=== PATIENT | male | born 1975 | race Caucasian/White ===

== ENCOUNTER 2020-11-09 11:58 | Emergency (ER) | payer MEDICAID, SELFPAY ==
--- NOTE | ~2020-11-09 | XR_ITS ---
EXAMINATION: XR KNEE, RIGHT CLINICAL INFORMATION: Swelling and redness. Evaluate for effusion. COMPARISON: None TECHNIQUE: Four views of the right knee. FINDINGS: There is anterior prepatellar soft tissue swelling. No joint effusion is evident. No bony abnormality is demonstrated. Joint spaces are maintained. XR/XR knee RT 3V IMPRESSION: Prepatellar soft tissue swelling. No joint effusion demonstrated.
[2020-11-09 12:41] VITALS: BP 119/77; PULSE 77; RESP 16; TEMP 36.6; O2SAT 98; BMI 28.0
--- NOTE | 2020-11-09 13:43 | ED.LOWEXIN ---
HPI - Extremity Injury (Lower) General Chief Complaint: Extremity Injury, Lower Stated Complaint: leg pain Time Seen by Provider: 11/09/20 13:36 Source: patient Mode of arrival: ambulatory Limitations: no limitations History of Present Illness HPI Narrative: 45-year-old male previously healthy here with right knee pain and swelling. The patient tells me that he had a small abrasion over his knee and he has been itching this causing the area open up. He then tells me that he started to notice redness and a little bit of swelling around the site for the last 3-4 days. No fevers or chills. No pain with weight-bearing or with bending or extending the knee. h/o laceration to right knee from young as a child requiring OR debridement, NO hardware. Related Data Previous Rx's Medication Instructions Recorded cephalexin 500 mg PO TID #21 cap 11/09/20 sulfamethoxazole-trimethoprim 1 tab PO BID #14 tab 11/09/20 [Bactrim DS] Allergies Allergy/AdvReac Type Severity Reaction Status Date / Time No Known Allergies Allergy Verified 11/09/20 12:48 Review of Systems Review of Systems: Yes all other systems are reviewed and are negative Constitutional: Constitutional: Reports no additional constitutional complaints, Denies body ache(s), Denies chills, Denies fever(s), Denies headache(s) and Denies weakness Eyes: Eyes: Reports no additional eye complaints and Denies change in vision ENT: Reports system reviewed and no additional complaints, except as documented, Denies dizziness, Denies headache(s), Denies nasal congestion, Denies nasal discharge and Denies neck pain Cardiovascular: Cardiovascular: Reports no additional cardiovascular complaints, Denies chest pain, Denies leg edema and Denies dyspnea Respiratory: Respiratory: Reports no additional respiratory complaints, Denies cough and Denies dyspnea Gastrointestinal: Gastrointestinal: Reports no additional gastrointestinal complaints, Denies abdominal pain, Denies diarrhea, Denies nausea and Denies vomiting Genitourinary: Genitourinary: Denies urinary incontinence Musculoskeletal: Musculoskeletal: Reports no additional musculoskeletal complaints, Denies back pain, Reports arthralgias, Denies joint swelling, Denies neck pain, Denies numbness and Denies tingling Integumentary/Breasts: Skin/Breast: Reports system reviewed and no additional complaints, except as docu, Reports swelling, Reports erythema and Reports rash Neurologic: Reports system reviewed and no additional complaints, except as documented, Denies Abnormal speech present, Denies dizziness, Denies headache(s), Denies numbness, Denies tingling and Denies weakness PMFSH Past Medical History Attestation statement: The following information was validated with the patient. Source: old records reviewed and nursing notes reviewed Medical History (Updated 11/09/20 @ 14:27 by Jong Keenan NP) No known health problems Social History Social History Smoked in Last 30 Days: No Use of substances other than those prescribed or required for medical reasons: No Advance Directives: No Advance Directives Information Provided: Yes Physical Exam Vital Signs: Vital Signs: Last Vital Signs Temp 97.9 F 11/09/20 12:41 Pulse 77 11/09/20 12:41 Resp 16 11/09/20 12:41 BP 119/77 11/09/20 12:41 Pulse Ox 98 11/09/20 12:41 Body Mass Index 28.0 Const: General: cooperative, healthy appearing, comfortable and no acute distress Orientation/consciousness: patient oriented x3 Limitations: no limitations HENMT: Head: Yes normal to inspection Ears: hearing grossly normal bilaterally General nose exam: Normal external nose present Face and sinus: Yes normal facial exam Mouth: Normal oral and palatal mucosa present Throat: Yes posterior oropharynx normal Eyes: General: appearance normal, both eyes and all related structures Pupils: Equal, round and reactive pupils present Neck: Neck: Yes normal visual inspection Chest: Chest palpation & inspection: normal inspection of the chest Resp: Effort & Inspection: normal respiratory effort Auscultation: clear to auscultation bilaterally Cardio: Rate: regular rate Rhythm: regular rhythm Peripheral pulses: Peripheral pulses 2+ throughout GI: Inspection: Yes normal to inspection Palpation (GI): Soft to palpation and nontender Auscultation: normal bowel sounds Back/Spine/Pelvis: Thoracic/Lumbar Spine: thoracic and lumbar spine normal to inspection Skin: General skin exam: no rashes or lesions noted Neuro: General: patient oriented x3, no focal motor deficits and normal sensation to monofilament Cranial nerves: Yes Equal, round and reactive pupils present Cognition (Neuro): normal cognition Speech: No Abnormal speech present Gait exam (Neuro): Normal gait present Motor exam (neuro): 5/5 motor strength present throughout Extrem: Other: To the anterior right knee there is an area of erythema which extends laterally approximately 2-3 inches distally. It is not circumferential. Mild swelling with no effusion. Patient is able to extend and flex the knee with no difficulty or reports of pain. Healed abrasion noted to the anterior right knee. General: Yes normal to inspection Course Course Course Narrative: 45 yo male here with right knee pain, swelling and erythema. No difficulty with range of motion. No fevers or chills. X-ray shows some soft tissue swelling with no joint effusion. Less likely septic knee with full range of motion with no pain reported. Patient also well-appearing with no signs or symptoms of systemic infection. Likely cellulitis secondary to abrasion. Will start patient on oral antibiotics and have him follow-up with Orthopedics. Manoj wrap and crutches to limit weight-bearing. Reviewed worrisome signs and symptoms such as pain with range of motion, worsening redness, fever greater than 100.4 on when to return to the emergency department. Comfortable discharge home. MDM - Extremity Injury (Lower) Medical Records Attestation: I reviewed the patient's medical records. Lab Data Attestation: I reviewed the patient's lab results. Imaging Data knee xray: Attestation: I personally reviewed and interpreted this imaging study as follows: Radiologist's impression: [address] [id number] ReportSigned Patient: Carlene Myles#: [id number]: 1975Acct:[id number]/Sex: 45 / MADM Date: 11/09/20Loc: HO.EDAttending Dr: Ordering Physician: JONG KEENAN NP Date of Service: 11/09/20 Procedure(s): XR knee RT 3V Accession Number(s): [id number] cc: JONG KEENAN NP~ EXAMINATION: XR KNEE, RIGHT CLINICAL INFORMATION: Swelling and redness. Evaluate for effusion. COMPARISON: None TECHNIQUE: Four views of the right knee. FINDINGS: There is anterior prepatellar soft tissue swelling. No joint effusion is evident. No bony abnormality is demonstrated. Joint spaces are maintained. XR/XR knee RT 3V IMPRESSION: Prepatellar soft tissue swelling. No joint effusion demonstrated. Discharge Plan Discharge Clinical Impression: Cellulitis Qualifiers: Site of cellulitis: extremity Site of cellulitis of extremity: lower extremity Laterality: right Qualified Code(s): L03.115 - Cellulitis of right lower limb Patient Disposition: Home, Self-Care Instructions: Cellulitis (ED) Additional Instructions: Manoj wrap for comfort Ice, elevation Return for difficulty bending or flexing the knee due to pain call orthopedics for a follow-up. Prescriptions: New cephalexin 500 mg capsule 500 mg PO TID Qty: 21 RF: 0 sulfamethoxazole-trimethoprim [Bactrim DS] 800-160 mg tablet 1 tab PO BID Qty: 14 RF: 0 Referrals: Karl Keating MD [Primary Care Provider] - 2 days Carlos Mims MD [Physician] - 2 days Interventions: ED Discharge Assessment Last Done: 11/09/20 14:44 Discharge Date/Time: 11/09/20 14:45
== END 2020-11-09 14:45 | disposition home or self-care (01) ==
PROVIDERS: Emergency Provider Emergency Medicine Emergency Medical Services; PCP Internal Medicine
DX: S80.211A Abrasion, right knee, initial encounter (principal); L03.115 Cellulitis of right lower limb; X58.XXXA Exposure to other specified factors, initial encounter; Y93.9 Activity, unspecified; Y92.9 Unspecified place or not applicable; Y99.9 Unspecified external cause status
CPT/HCPCS: 73562; 99283

== ENCOUNTER 2021-05-05 11:16 | Emergency (ER) | payer MEDICAID, SELFPAY ==
--- NOTE | ~2021-05-05 | XR_ITS ---
EXAMINATION: XR KNEE, RIGHT CLINICAL INFORMATION: Right knee pain COMPARISON: Radiographs right knee 11/09/2020 TECHNIQUE: Four views of the right knee. FINDINGS: The lateral view shows soft tissue swelling just anterior superior to the anterior tibial tubercle. There is no gas tracking in the soft tissues. No patella baja or scott. No suprapatellar effusion. The bony structures are normal in density. There is no fracture or dislocation. No joint narrowing. No erosive change or chondrocalcinosis. XR/XR knee RT 4V IMPRESSION: Superficial soft tissue swelling overlying region of distal patellar tendon. Otherwise unremarkable exam.
[2021-05-05 11:58] VITALS: BP 133/68; PULSE 68; RESP 18; TEMP 36.4; O2SAT 97; BMI 28.9
--- NOTE | 2021-05-05 11:59 | ED.LOWEXIN ---
HPI - Extremity Injury (Lower) General Chief Complaint: General Medical Stated Complaint: right leg pain Time Seen by Provider: 05/05/21 11:57 Source: patient Mode of arrival: ambulatory Limitations: no limitations History of Present Illness HPI Narrative: Right knee small area of erythema that is painful. patient denies any recent trauma. Patient denies any leg swelling, calf pain, Knee stiffness, fever, or chills. Related Data Previous Rx's Medication Instructions Recorded cephalexin 500 mg capsule 500 mg PO TID #21 cap 11/09/20 sulfamethoxazole 800 1 tab PO BID #14 tab 11/09/20 mg-trimethoprim 160 mg tablet (Bactrim DS) cephalexin 500 mg capsule 500 mg PO QID 7 Days #28 cap 05/05/21 doxycycline hyclate 100 mg capsule 100 mg PO BID 7 Days #14 cap 05/05/21 Allergies Allergy/AdvReac Type Severity Reaction Status Date / Time No Known Allergies Allergy Verified 11/09/20 12:48 Review of Systems Review of Systems: Yes all other systems are reviewed and are negative Constitutional: Constitutional: Reports as per HPI and Reports no additional constitutional complaints Eyes: Eyes: Reports as per HPI and Reports no additional eye complaints ENT: Reports system reviewed and no additional complaints, except as documented and Reports as per HPI Cardiovascular: Cardiovascular: Reports as per HPI and Reports no additional cardiovascular complaints Respiratory: Respiratory: Reports as per HPI and Reports no additional respiratory complaints Gastrointestinal: Gastrointestinal: Reports as per HPI and Reports no additional gastrointestinal complaints Genitourinary: Genitourinary: Reports no additional male genitourinary complaints and Reports as per HPI Musculoskeletal: Musculoskeletal: Reports no additional musculoskeletal complaints, Reports as per HPI and Reports arthralgias (left knee pain) Neurologic: Reports system reviewed and no additional complaints, except as documented Psychiatric: Psychiatric: Reports no additional psychiatric complaints and Reports as per HPI [facility] Past Medical History Surgical History (Updated 05/05/21 @ 12:00 by Abeba Grant RN) Hx of appendectomy Family History Family History Father Diabetes High blood pressure Mother Arthritis Social History Social History Alcohol intake: never Advance Directives: No Advance Directives Information Provided: No Physical Exam Vital Signs: Vital Signs: Last Vital Signs Temp 97.5 F 05/05/21 11:58 Pulse 68 05/05/21 11:58 Resp 18 05/05/21 11:58 BP 133/68 05/05/21 11:58 Pulse Ox 97 05/05/21 11:58 Body Mass Index 28.9 Const: General: cooperative, healthy appearing, comfortable and no acute distress Orientation/consciousness: oriented to time and patient oriented x3 HENMT: Head: Yes normal to inspection, Yes No palpable skull fracture present, Yes normocephalic and Yes atraumatic Eyes: General: appearance normal, both eyes and all related structures Neck: Neck: Yes normal visual inspection, Yes full ROM, Yes no lymphadenopathy, Yes no meningeal signs, Yes trachea midline, Yes supple, No anterior neck swelling and No tender Chest: Chest palpation & inspection: normal inspection of the chest and normal palpation of entire chest wall Resp: Effort & Inspection: normal respiratory effort and able to speak in complete sentences Auscultation: clear to auscultation bilaterally Cardio: Jugular venous distension: no JVD Heart sounds: S1 normal heart sound present and S2 normal heart sound present GI: Inspection: Yes normal to inspection and No abdominal wall ecchymosis Palpation (GI): Soft to palpation, not firm, nontender and no guarding : General: No CVA tenderness and Yes no CVA tenderness Back/Spine/Pelvis: Back: no CVA tenderness and No CVA tenderness Skin: General skin exam: erythema Full body images: 1. small area of knee with erythema and tenderness. Neuro: General: oriented to time, patient oriented x3, no meningeal signs and CN's II-XI intact bilaterally Cranial nerves: Yes CN's II-XII intact bilaterally Extrem: General: Yes normal to inspection Knee images: 1. Erythema with mild tenderness. negative for knee stiffness. Knee is not swollen. Patient has complete range of motion of knee. lower extremities negative for swelling, calf pain, ecchyomsis, or deformities. motor, neuro, and vascular exam is intact. Course Course Course Narrative: Presents to the ED for right knee pain since yesterday without any trauma. patient denies any swelling of knee. Patient states slight redness on knee. patient denies any knee stiffness or inabitliy to move. patient sent for xray of knee. Vital signs stable Reevaluation(s) Reevaluation #1: mild Cellulitis. not concerned for sepsis. Knee xray negative for joint fluid or fracture. not concerned for septic joint. MDM - Extremity Injury (Lower) MDM Narrative Medical decision making narrative: Cellulitis Discharge Plan Discharge Clinical Impression: Cellulitis Qualifiers: Site of cellulitis: extremity Site of cellulitis of extremity: lower extremity Laterality: right Qualified Code(s): L03.115 - Cellulitis of right lower limb Patient Disposition: Home, Self-Care Instructions: Cellulitis (ED), Warm Compress or Soak (ED) Additional Instructions: Return to the ED for swelling of knee, severe redness, knee stiffness, inability to bend knee or walk, red streaks on legs, chest pain, shorntess of breath, fever, or chills. Please follow up with PCP. Prescriptions: New cephalexin 500 mg capsule 500 mg PO QID 7 Days Qty: 28 RF: 0 doxycycline hyclate 100 mg capsule 100 mg PO BID 7 Days Qty: 14 RF: 0 No Action cephalexin 500 mg capsule 500 mg PO TID Qty: 21 RF: 0 sulfamethoxazole-trimethoprim [Bactrim DS] 800-160 mg tablet 1 tab PO BID Qty: 14 RF: 0 Interventions: ED Discharge Assessment Last Done: 05/05/21 12:44 Discharge Date/Time: 05/05/21 12:45 Print Language: Citizen Of [place]
== END 2021-05-05 12:45 | disposition home or self-care (01) ==
PROVIDERS: Emergency Provider Emergency Medicine; PCP Internal Medicine
DX: L03.115 Cellulitis of right lower limb (principal); M79.604 Pain in right leg; Z79.899 Other long term (current) drug therapy
CPT/HCPCS: 73564; 99283

== ENCOUNTER 2021-07-01 08:46 | Outpatient (REF) | payer MEDICAID, SELFPAY ==
[2021-07-01 09:38] LABS: COVID-19 Test Negative (Negative)
== END 2021-07-01 08:47 | disposition home or self-care (01) ==
LOC: HO.LAB 08:46
PROVIDERS: Visit Provider Internal Medicine
DX: Z20.822 Contact with and (suspected) exposure to COVID-19 (principal)
CPT/HCPCS: 36415; 87635; C9803

== ENCOUNTER 2022-02-05 10:07 | Emergency (ER) | payer MEDICAID, SELFPAY ==
[2022-02-05 11:32] VITALS: BP 118/70; PULSE 60; RESP 16; TEMP 36.8; O2SAT 100; BMI 28.8
[2022-02-05 11:52] LABS: COVID-19 Test Positive (Negative); IDNOW Serial# 55D5AD1C
[2022-02-05 12:12] LABS: Influenza A Negative (Negative); Influenza B2 Negative (Negative)
[2022-02-05 12:25] VITALS: BP 129/76; PULSE 71; RESP 18; TEMP 36.6; O2SAT 100
--- NOTE | 2022-02-05 12:42 | ED_ITS ---
HPI - General Adult General Chief complaint: Upper Respiratory Symptoms Stated complaint: sorethroat, flu like Source: patient Mode of arrival: ambulatory History of Present Illness HPI narrative: 46-year-old male healthy presents to ED for sore throat, body aches, fever, night sweats, and chills. Patient states her family members are also sick. Patient vaccinated with Pfizer and the Booster. Related Data Previous Rx's Medication Instructions Recorded cephalexin 500 mg capsule 500 mg PO TID #21 cap 11/09/20 sulfamethoxazole 800 1 tab PO BID #14 tab 11/09/20 mg-trimethoprim 160 mg tablet (Bactrim DS) cephalexin 500 mg capsule 500 mg PO QID 7 Days #28 cap 05/05/21 doxycycline hyclate 100 mg capsule 100 mg PO BID 7 Days #14 cap 05/05/21 Allergies Allergy/AdvReac Type Severity Reaction Status Date / Time No Known Allergies Allergy Verified 11/09/20 12:48 Review of Systems Review of Systems: Sore throat, body aches, night chills, night sweats, fever Yes all other systems are reviewed and are negative [facility] Past Medical History Surgical History (Updated 05/05/21 @ 12:00 by Abeba Grant RN) Hx of appendectomy Family History Family History Father Diabetes High blood pressure Mother Arthritis Social History Social History Alcohol intake: never Advance Directives: No Advance Directives Information Provided: No Physical Exam ED Vital Signs: Vital Signs - 24 hr 02/05/22 11:32 02/05/22 12:25 Temperature 98.3 F 98 F Pulse Rate 60 71 Respiratory Rate 16 18 Blood Pressure 118/70 129/76 Pulse Oximetry 100 100 BMI result Body Mass Index 28.8 Const General: cooperative, healthy appearing, comfortable, no acute distress, well developed, alert, awake and Physically active Orientation/consciousness: patient oriented x3 HENMT Head: Yes normal to inspection, Yes No palpable skull fracture present, Yes normocephalic, Yes atraumatic and No abrasion Eyes General: appearance normal, both eyes and all related structures Neck Neck: Yes normal visual inspection, Yes full ROM, Yes no lymphadenopathy, Yes no meningeal signs, Yes trachea midline, Yes supple, No anterior neck swelling and No tender Chest Chest palpation & inspection: normal inspection of the chest and normal palpation of entire chest wall Resp Effort & Inspection: normal respiratory effort and able to speak in complete sentences Auscultation: clear to auscultation bilaterally Cardio Jugular venous distension: no JVD Heart sounds: S1 normal heart sound present and S2 normal heart sound present GI Inspection: Yes normal to inspection and No abdominal wall ecchymosis Palpation (GI): Soft to palpation, not firm, nontender, no guarding and not rigid General: No CVA tenderness and Yes no CVA tenderness Back/Spine/Pelvis Back: no CVA tenderness, No CVA tenderness and No back tenderness Skin General skin exam: no rashes or lesions noted and elasticity normal Neuro General: patient oriented x3, gait normal, no meningeal signs and CN's II-XI intact bilaterally Cranial nerves: Yes CN's II-XII intact bilaterally Extrem General: Yes normal to inspection and Yes full ROM Psych Appearance: grossly normal, well kempt and not disheveled Course Course Course Narrative: COVID, influenza ordered. Reevaluation(s) Reevaluation #1: Patient COVID positive. Patient well-appearing. Not suspecting COVID pneumonia myocarditis, heart attack, or pulmonary embolus. Patient educated on signs of respiratory distress told to come back to ED if he has them. Time: 12:51 Medical Decision Making [facility] Narrative Medical decision making narrative: COVID Lab Data Labs: Lab Results 02/05/22 02/05/22 Range/Units 11:37 11:37 COVID-19 (SHAHZAD) Positive A (Negative) COVID-19 Clin Com See Note Influenza Type A (JO) Negative (Negative) Influenza Type B (JO) Negative (Negative) Influenza A & B Note See Note Discharge Plan Discharge Clinical Impression: COVID-19 Patient Disposition: Home, Self-Care Instructions: COVID-19 (Coronavirus Disease 2019) (ED) Additional Instructions: You came back positive for COVID-19. You will be given 7 days off a self- isolation. Return to the ED immediately for any chest pain, shortness of breath, coughing up blood, leg swelling, calf pain, O2 saturation below 93%, or any other concerning symptoms. Please follow-up with primary care provider Prescriptions: No Action cephalexin 500 mg capsule 500 mg PO TID Qty: 21 0RF sulfamethoxazole-trimethoprim [Bactrim DS] 800-160 mg tablet 1 tab PO BID Qty: 14 0RF cephalexin 500 mg capsule 500 mg PO QID 7 Days Qty: 28 0RF doxycycline hyclate 100 mg capsule 100 mg PO BID 7 Days Qty: 14 0RF Stand Alone Forms: Work/School Release Interventions: ED Discharge Assessment Last Done: 02/05/22 13:08 Discharge Date/Time: 02/05/22 13:09 Print Language: Swedish
== END 2022-02-05 13:09 | disposition home or self-care (01) ==
LOC: HO.ED 13:01
PROVIDERS: Emergency Provider Emergency Medicine
DX: U07.1 COVID-19 (principal)
CPT/HCPCS: 87502; 87635; 99281; 99283

== ENCOUNTER 2022-03-20 15:00 | Emergency (ER) | payer MEDICAID, SELFPAY ==
[2022-03-20 15:01] VITALS: BP 136/81; PULSE 18; RESP 17; TEMP 36.6; O2SAT 98; BMI 30.2
[2022-03-20 15:21] LABS: MANUAL DIFF FLAG NO
[2022-03-20 15:23] LABS: Basophils Percent Auto 0.3 % (0-2); Eosinophils Absolute Auto 0.2 X10*3/uL (0.0-0.4); Eosinophils Percent Auto 3.8 % (0-4); Hematocrit 37.7 % (42.0-52.0); Imm Gran Abs Auto 0.01 X10*3/uL (0.00-0.03); Imm Gran Pct Auto 0.2 % (0.0-0.4); Lymphocytes Absolute Auto 2.1 X10*3/uL (1.2-4.9); Lymphocytes Percent Auto 36.7 % (20-40); Mean Corpuscular HGB Conc 34.5 g/dl (31.0-36.0); Mean Corpuscular Volume 89.8 fL (80.0-98.0); Mean Platelet Volume 10.2 fL (9.4-12.4); Monocytes Absolute Auto 0.6 X10*3/uL (0.1-1.2); Monocytes Percent Auto 9.6 % (2-11); Neutrophils Absolute Auto 2.9 x10*3/uL (2.0-8.3); Neutrophils Percent Auto 49.4 % (45-73); Platelet Count 233 X10*3/uL (160-400); Red Cell Distribution Width 12.6 % (11.0-16.0); White Blood Count 5.8 X10*3/uL (4.8-10.8)
[2022-03-20 15:24] LABS: Appearance Urine CLEAR; Color Urine YELLOW; Glucose Urine UA NEG (NEG); Leukocyte Esterase Urine NEG (NEG); Nitrite Urine NEG (NEG); Specific Gravity - Urine >= 1.030 (1.005-1.025); UACC Culture Trigger NO; Urine Blood 2+ (NEG); Urine Ketones NEG (NEG); Urine Protein NEG (NEG-TRACE)
[2022-03-20 15:32] LABS: Lactic Acid 0.8 mmol/L (0.5-2.0)
[2022-03-20 15:35] LABS: Anion Gap 12 (12-20); Blood Urea Nitrogen 15 mg/dL (9-16); Calcium 9.2 mg/dL (8.4-10.2); Carbon Dioxide 23 mmol/L (22-29); Chloride 109 mmol/L (96-108); Creatinine Clr Calc Pharmacy 108.2; Estimated Glomerular Filt Rate > 60; Glucose Random 104 mg/dL (60-115); Potassium 4.4 mmol/L (3.3-5.1); Sodium 140 mmol/L (135-145)
[2022-03-20 15:37] LABS: WBC Urine 0 /HPF (0-4)
--- NOTE | 2022-03-20 16:23 | ED.MALEGU ---
HPI - Male Genitourinary General Chief complaint: Abdominal Pain Stated complaint: hernia Time Seen by Provider: 03/20/22 16:06 Source: patient Mode of arrival: ambulatory Limitations: no limitations History of Present Illness MD Complaint: other (L groin bump) Onset (ago): day(s) (1) Duration: intermittent Location: left inguinal region Severity: mild Quality: dull Relieving factors: rest Exacerbating factors: movement (coughing) Context: other (wondering if he has a hernia, also c/o white pustules he tried to pop on his inner foreskin 3 days ago) Associated symptoms: Reports other (noticed a red bump in his armpit too) Related Data Previous Rx's Medication Instructions Recorded cephalexin 500 mg capsule 500 mg PO TID #21 caps 11/09/20 sulfamethoxazole 800 1 tab PO BID #14 tabs 11/09/20 mg-trimethoprim 160 mg tablet (Bactrim DS) cephalexin 500 mg capsule 500 mg PO QID 7 days #28 caps 05/05/21 doxycycline hyclate 100 mg capsule 100 mg PO BID 7 days #14 caps 05/05/21 doxycycline hyclate 100 mg tablet 100 mg PO BID 7 days #14 tabs 03/20/22 mupirocin 2 % topical ointment 1 appl topical BID 7 days #15 grams 03/20/22 valacyclovir 1 gram tablet 1,000 mg PO BID 7 days #14 tabs 03/20/22 (Valtrex) Allergies Allergy/AdvReac Type Severity Reaction Status Date / Time No Known Allergies Allergy Verified 11/09/20 12:48 Review of Systems Review of Systems: Constitutional : No Fever, No Chills ENT/Mouth : No sore throat, No Rhinorrhea Eyes: No Eye Pain, No Swelling, No Redness Cardiovascular : No Chest Pain, No SOB Respiratory : No Cough, No Sputum Gastrointestinal : No Nausea, No Vomiting, No Diarrhea, No Constipation, No abdominal Pain Genitourinary : No Dysuria, No Urinary Frequency, No Hematuria, Musculoskeletal : No joint pain, No Myalgias, No Joint Swelling Skin : pos Skin Lesions, No rash Neuro : No Weakness, No Numbness, No Dizziness, No Headache Psych : No Anxiety/Panic, No Depression Heme/Lymph: No Bruising, No Bleeding,No Lymphadenopathy Endocrine : No Polyuria, No Polydipsia All other systems reviewed and are negative PMFSH Past Medical History Attestation statement: The following information was validated with the patient. Medical History COVID-19 Surgical History Hx of appendectomy Family History Family History Father Diabetes High blood pressure Mother Arthritis Social History Social History (Updated 03/20/22 @ 16:24 by Kat Wesley DO) Alcohol intake: never Patient Tobacco Use Status: Never used Tobacco Physical Exam Vital Signs: Vital Signs: Last Vital Signs Temp 98 F 03/20/22 15:01 Pulse 18 L 03/20/22 15:01 Resp 17 03/20/22 15:01 BP 136/81 03/20/22 15:01 Pulse Ox 98 03/20/22 15:01 O2 Del Method 03/20/22 15:01 BMI result Body Mass Index 30.2 Appearance: Alert. Oriented X3. No acute distress. Eyes: Pupils equal, round and reactive to light. ENT: Pharynx normal. Neck: Normal inspection. Neck supple. CVS: Normal heart rate and rhythm. Pulses normal. Respiratory: No respiratory distress. Breath sounds normal. Abdomen: Soft and non-tender. Soft reducible non-tender left inguinal hernia - small : inside foreskin 3 punctate flat yellowish lesions ttp with surrounding erythematous base more yellow inside - chancre in appearance Skin: Skin warm and dry. Normal skin color. Normal skin turgor. Extremities: No lower extremity edema. No calf ttp L axially area punctate red raised boil not fluctuant very small no surrounding edema or erythema Neuro: Oriented X 3. No motor deficit. No sensory deficit. MDM - Male Genitourinary MDM Narrative Medical decision making narrative: 47 yo male here with c/o L groin bump that he thinks is a hernia he has no associated GI or symptoms, also c/o L axillary boil that is not infected and it too small to I+D at this time will instruct warm compresses and bacitracin. As for groin area will need supportive underwear outpatient follow up with surgery for L inguinal hernia - limit weight lifting. He also has penile lesions that appear more chancroid in nature that are painful will test for G+C, HSV, RPR could be ducreyi will give dose of rocephin. At this time will start on doxycycline as well as mupirocin, they are not vesicles in nature but will start on valtrex as well Lab Data Result diagrams: 03/20/22 15:14 03/20/22 15:14 Labs: Lab Results 03/20/22 03/20/22 03/20/22 Range/Units 15:14 15:14 15:14 WBC 5.8 (4.8-10.8) X10*3/uL RBC 4.20 L (4.60-5.80) X10*6/uL Hgb 13.0 L (14.0-18.0) g/dl Hct 37.7 L (42.0-52.0) % MCV 89.8 (80.0-98.0) fL MCH 31.0 (27.0-33.0) pg MCHC 34.5 (31.0-36.0) g/dl RDW 12.6 (11.0-16.0) % Plt Count 233 (160-400) X10*3/uL MPV 10.2 (9.4-12.4) fL Immature Gran % (Auto) 0.2 (0.0-0.4) % Neut % (Auto) 49.4 (45-73) % Lymph % (Auto) 36.7 (20-40) % [place] % (Auto) 9.6 (2-11) % Eos % (Auto) 3.8 (0-4) % Baso % (Auto) 0.3 (0-2) % Lymph # (Auto) 2.1 (1.2-4.9) X10*3/uL [place] # (Auto) 0.6 (0.1-1.2) X10*3/uL Eos # (Auto) 0.2 (0.0-0.4) X10*3/uL Baso # (Auto) 0.0 (0.0-0.2) X10*3/uL Abs Immat Gran (auto) 0.01 (0.00-0.03) X10*3/uL Absolute Neuts (auto) 2.9 (2.0-8.3) x10*3/uL Absolute Nucleated RBC 0.000 (0.0-0.012) X10*3/uL Nucleated RBC % (auto) 0.0 (0.0-0.2) /100WBC Sodium 140 (135-145) mmol/L Potassium 4.4 (3.3-5.1) mmol/L Chloride 109 H (96-108) mmol/L Carbon Dioxide 23 (22-29) mmol/L Anion Gap 12 (12-20) BUN 15 (9-16) mg/dL Creatinine 0.94 (0.5-1.4) mg/dL Estim Creat Clear Calc 108.2 Estimated GFR > 60 Random Glucose 104 (60-115) mg/dL Lactic Acid 0.8 (0.5-2.0) mmol/L Calcium 9.2 (8.4-10.2) mg/dL Urine Color Urine Appearance Urine pH (5.0-8.0) Ur Specific [place] (1.005-1.025) Urine Protein (NEG-TRACE) MG/DL Urine Glucose (UA) (NEG) MG/DL Urine Ketones (NEG) MG/DL Urine Blood (NEG) Urine Nitrite (NEG) Ur Leukocyte Esterase (NEG) Urine RBC (0) /HPF Urine WBC (0-4) /HPF Ur Squamous Epith Cells /LPF Urine Bacteria /LPF 03/20/22 Range/Units 15:14 WBC (4.8-10.8) X10*3/uL RBC (4.60-5.80) X10*6/uL Hgb (14.0-18.0) g/dl Hct (42.0-52.0) % MCV (80.0-98.0) fL MCH (27.0-33.0) pg MCHC (31.0-36.0) g/dl RDW (11.0-16.0) % Plt Count (160-400) X10*3/uL MPV (9.4-12.4) fL Immature Gran % (Auto) (0.0-0.4) % Neut % (Auto) (45-73) % Lymph % (Auto) (20-40) % [place] % (Auto) (2-11) % Eos % (Auto) (0-4) % Baso % (Auto) (0-2) % Lymph # (Auto) (1.2-4.9) X10*3/uL [place] # (Auto) (0.1-1.2) X10*3/uL Eos # (Auto) (0.0-0.4) X10*3/uL Baso # (Auto) (0.0-0.2) X10*3/uL Abs Immat Gran (auto) (0.00-0.03) X10*3/uL Absolute Neuts (auto) (2.0-8.3) x10*3/uL Absolute Nucleated RBC (0.0-0.012) X10*3/uL Nucleated RBC % (auto) (0.0-0.2) /100WBC Sodium (135-145) mmol/L Potassium (3.3-5.1) mmol/L Chloride (96-108) mmol/L Carbon Dioxide (22-29) mmol/L Anion Gap (12-20) BUN (9-16) mg/dL Creatinine (0.5-1.4) mg/dL Estim Creat Clear Calc Estimated GFR Random Glucose (60-115) mg/dL Lactic Acid (0.5-2.0) mmol/L Calcium (8.4-10.2) mg/dL Urine Color YELLOW Urine Appearance CLEAR Urine pH 6.0 (5.0-8.0) Ur Specific [place] >= 1.030 H (1.005-1.025) Urine Protein NEG (NEG-TRACE) MG/DL Urine Glucose (UA) NEG (NEG) MG/DL Urine Ketones NEG (NEG) MG/DL Urine Blood 2+ H (NEG) Urine Nitrite NEG (NEG) Ur Leukocyte Esterase NEG (NEG) Urine RBC 5-9 H (0) /HPF Urine WBC 0 (0-4) /HPF Ur Squamous Epith Cells NONE /LPF Urine Bacteria NONE /LPF Discharge Plan Discharge Clinical Impression: Genital chancre Inguinal hernia Qualifiers: Obstruction and gangrene presence: without obstruction or gangrene Laterality: unilateral Recurrence: non-recurrent Qualified Code(s): K40.90 - Unilateral inguinal hernia, without obstruction or gangrene, not specified as recurrent Patient Disposition: Home, Self-Care Instructions: Sexually Transmitted Diseases (ED), Inguinal Hernia (ED) Additional Instructions: return to ED for any worsening symptoms or concerns le est?n haciendo alexey prueba de s?filis, gonorrea, clamidia, herpes, esto tambi?n podr?a ser otra forma de chancro. tu silva necesita estar informada y probada. omar?n contacto sexual luis antonio 7 d?as. completar todos los medicamentos Prescriptions: New doxycycline hyclate 100 mg tablet 100 mg PO BID 7 Days Qty: 14 0RF mupirocin 2 % ointment 1 appl topical BID 7 Days Qty: 15 0RF valacyclovir [Valtrex] 1 gram tablet 1,000 mg PO BID 7 Days Qty: 14 0RF No Action cephalexin 500 mg capsule 500 mg PO TID Qty: 21 0RF sulfamethoxazole-trimethoprim [Bactrim DS] 800-160 mg tablet 1 tab PO BID Qty: 14 0RF cephalexin 500 mg capsule 500 mg PO QID 7 Days Qty: 28 0RF doxycycline hyclate 100 mg capsule 100 mg PO BID 7 Days Qty: 14 0RF Referrals: Emerson Quick MD [Physician] - 1 week Stand Alone Forms: Work/School Release Print Language: French
[2022-03-20] MEDS: cefTRIAXone sodium 500 MG, Lidocaine HCl 1 % MPF 1 ML IM (17:04)
[2022-03-20 17:48] LABS: Syphilis Screen Nonreactive (Nonreactive)
[2022-03-21 05:21] LABS: CT PCR NOT DETECTED (Not Detect.); NG PCR NOT DETECTED (Not Detect.)
== END 2022-03-20 17:19 | disposition home or self-care (01) ==
LOC: HO.ED 17:16
PROVIDERS: Emergency Provider Emergency Medicine
DX: A51.0 Primary genital syphilis (principal); K40.90 Unilateral inguinal hernia, without obstruction or gangrene, not specified as recurrent; Z79.899 Other long term (current) drug therapy
CPT/HCPCS: 36415; 80048; 81001; 83605; 85025; 86780; 87255; 87491; 87591; 96372; 99282; 99284; J0696

== ENCOUNTER 2022-09-11 11:19 | Emergency (ER) | payer MEDICAID, SELFPAY ==
--- NOTE | ~2022-09-11 | XR_ITS ---
EXAMINATION: XR CHEST CLINICAL INFORMATION: Cough COMPARISON: July 24, 2017 TECHNIQUE: 2 views of the chest were obtained. FINDINGS: No significant abnormality is noted involving the heart, lungs, mediastinum, bony thorax or soft tissues. XR/XR chest 2V IMPRESSION: No acute disease.
[2022-09-11 11:22] VITALS: BP 144/91; PULSE 81; RESP 18; TEMP 37; O2SAT 97; BMI 30.4
--- NOTE | 2022-09-11 11:22 | ED.URI ---
HPI - URI/Sore Throat General Chief Complaint: General Medical <CANDY Webb Last Filed: 09/11/22 11:27> Stated Complaint: Cough Sore Throat <CANDY Webb Last Filed: 09/11/22 11:27> Time Seen by Provider: 09/11/22 11:42 <CANDY Webb Last Filed: 09/11/22 11:27> History of Present Illness HPI Narrative: patient complains of cough sore throat runny nose for several days, no shortness of breath no chest pain no fever no vomiting Cough started out dry but is now productive of sputum <CANDY Bocanegra Last Filed: 09/11/22 13:36> Related Data Home Medications: Previous Rx's Medication Instructions Recorded cephalexin 500 mg capsule 500 mg PO TID #21 caps 11/09/20 sulfamethoxazole 800 1 tab PO BID #14 tabs 11/09/20 mg-trimethoprim 160 mg tablet (Bactrim DS) cephalexin 500 mg capsule 500 mg PO QID 7 days #28 caps 05/05/21 doxycycline hyclate 100 mg capsule 100 mg PO BID 7 days #14 caps 05/05/21 doxycycline hyclate 100 mg tablet 100 mg PO BID 7 days #14 tabs 03/20/22 mupirocin 2 % topical ointment 1 appl topical BID 7 days #15 grams 03/20/22 valacyclovir 1 gram tablet 1,000 mg PO BID 7 days #14 tabs 03/20/22 (Valtrex) azithromycin 250 mg tablet See Rx Instructions PO .COMPLEX #6 09/11/22 (Zithromax Z-Elio) tabs <CANDY Webb Last Filed: 09/11/22 11:27> Allergies/Adverse Reactions: Allergies Allergy/AdvReac Type Severity Reaction Status Date / Time No Known Allergies Allergy Verified 11/09/20 12:48 <CANDY Webb Last Filed: 09/11/22 11:27> Review of Systems Review of Systems: patient complains of cough runny nose body aches and sore throat Negatives are no fever no chills no dizziness or weakness no headache no neck pain no stiff neck no difficulty breathing or swallowing, no chest pain no shortness of breath no difficulty breathing no blood in sputum no abdominal pain no nausea vomiting or diarrhea no leg swelling no calf pain or swelling no skin rash <CANDY Bocanegra - Last Filed: 09/11/22 13:36> Yes all other systems are reviewed and are negative <CANDY Bocanegra - Last Filed: 09/11/22 13:36> [facility] [place] Past Medical History Source: nursing notes reviewed <CANDY Bocanegra - Last Filed: 09/11/22 13:36> Medical History: Medical History COVID-19 <CANDY Webb - Last Filed: 09/11/22 11:27> Surgical History: Surgical History Hx of appendectomy <CANDY Webb - Last Filed: 09/11/22 11:27> Family History Family History: Family History Father Diabetes High blood pressure Mother Arthritis <CANDY Webb - Last Filed: 09/11/22 11:27> Social History Social History: Social History (Updated 03/20/22 @ 16:24 by Sarah Wesley DO) Alcohol intake: never Patient Tobacco Use Status: Never used Tobacco Smoked in Last 30 Days: No Advance Directives: No Advance Directives Information Provided: Yes <CANDY Webb - Last Filed: 09/11/22 11:27> Physical Exam Vital Signs: Vital Signs: Last Vital Signs Temp 98.6 F 09/11/22 11:22 Pulse 81 09/11/22 11:22 Resp 18 09/11/22 11:22 BP 144/91 H 09/11/22 11:22 Pulse Ox 97 09/11/22 11:22 O2 Del Method 09/11/22 11:22 BMI result Body Mass Index 30.4 <CANDY Webb - Last Filed: 09/11/22 11:27> Vital Signs: Last Vital Signs Temp 98.6 F 09/11/22 11:22 Pulse 81 09/11/22 11:22 Resp 18 09/11/22 11:22 BP 144/91 H 09/11/22 11:22 Pulse Ox 97 09/11/22 11:22 O2 Del Method 09/11/22 11:22 BMI result Body Mass Index 30.4 <CANDY Bocanegra - Last Filed: 09/11/22 13:36> general appearance comfortable no distress Eyes no redness or discharge The nose congested but no sinus tenderness The pharynx is clear without redness swelling or exudate, membranes moist, voice normal Neck is supple Chest is clear to auscultation bilateral Heart no murmur Abdomen soft nontender Extremities no edema Skin no rash <CANDY Bocanegra - Last Filed: 09/11/22 13:36> Course Course Course Narrative: RME-11:20am - 47yoM and to the ED c c/o URI complaints which include generalized fatigue/malaise, chills, sweats, sore throat, canker sore and cough x 3 days. Negative Covid Test at home. has similar symptoms. Denies recent travel. Multiple sick contacts at work. Denies any fevers, dizziness, chest pain or shortness of breath, sputum production, nausea vomiting, abdominal pain, rashes or any other symptoms complaints or concerns at this time. Plan: Patient is stable. Strep and COVID/RSV/flu swab collected at this time. Patient will be sent back to the waiting room to be evaluated in emergency [facility]. <CANDY Webb - Last Filed: 09/11/22 11:27> RME-11:20am - 47yoM and to the ED c c/o URI complaints which include generalized fatigue/malaise, chills, sweats, sore throat, canker sore and cough x 3 days. Negative Covid Test at home. has similar symptoms. Denies recent travel. Multiple sick contacts at work. Denies any fevers, dizziness, chest pain or shortness of breath, sputum production, nausea vomiting, abdominal pain, rashes or any other symptoms complaints or concerns at this time. Plan: Patient is stable. Strep and COVID/RSV/flu swab collected at this time. Patient will be sent back to the waiting room to be evaluated in emergency [facility]. patient seen in [facility] with complaint of worsening cough with sputum, chest x-ray was negative COVID and flu testing negative and well-appearing patient discharged home <CANDY Bocanegra - Last Filed: 09/11/22 13:36> Medical Decision Making Lab Data Labs: Lab Results 09/11/22 09/11/22 Range/Units 11:24 11:24 Influenza Type A (PCR) NEGATIVE (Negative) Influenza Type B (PCR) NEGATIVE (Negative) RSV RNA Qual (PCR) NEGATIVE (Negative) SARS-CoV-2 RNA (RT-PCR) NEGATIVE (Negative) S. pyogenes GrpA JO Negative (Negative) <CANDY Webb - Last Filed: 09/11/22 11:27> Lab Results 09/11/22 09/11/22 Range/Units 11:24 11:24 Influenza Type A (PCR) NEGATIVE (Negative) Influenza Type B (PCR) NEGATIVE (Negative) RSV RNA Qual (PCR) NEGATIVE (Negative) SARS-CoV-2 RNA (RT-PCR) NEGATIVE (Negative) S. pyogenes GrpA JO Negative (Negative) <CANDY Bocanegra - Last Filed: 09/11/22 13:36> Discharge Plan Discharge Clinical Impression: Bronchitis <CANDY Webb - Last Filed: 09/11/22 11:27> Patient Disposition: Home, Self-Care <CANDY Webb - Last Filed: 09/11/22 11:27> Additional Instructions: chest x-ray was normal, COVID and flu testing were negative No sign of any dangerous condition now We are treating bronchitis with antibiotic Zithromax Return any time any worse condition or any concerns <CANDY Webb - Last Filed: 09/11/22 11:27> Prescriptions: New azithromycin [Zithromax Z-Elio] 250 mg tablet See Rx Instructions .ROUTE .COMPLEX Qty: 6 0RF Rx Instructions: For 250 mg dose pack: take 500 mg today (day 1), then 250 mg for 4 days (days 2-5) No Action cephalexin 500 mg capsule 500 mg PO TID Qty: 21 0RF sulfamethoxazole-trimethoprim [Bactrim DS] 800-160 mg tablet 1 tab PO BID Qty: 14 0RF cephalexin 500 mg capsule 500 mg PO QID 7 Days Qty: 28 0RF doxycycline hyclate 100 mg capsule 100 mg PO BID 7 Days Qty: 14 0RF doxycycline hyclate 100 mg tablet 100 mg PO BID 7 Days Qty: 14 0RF mupirocin 2 % ointment 1 appl topical BID 7 Days Qty: 15 0RF valacyclovir [Valtrex] 1 gram tablet 1,000 mg PO BID 7 Days Qty: 14 0RF <CANDY Webb - Last Filed: 09/11/22 11:27> Stand Alone Forms: Work/School Release <CANDY Webb - Last Filed: 09/11/22 11:27>
[2022-09-11 11:39] LABS: Strep A Nucleic Acid Negative (Negative)
[2022-09-11 12:09] LABS: Influenza A PCR NEGATIVE (Negative); Influenza B PCR NEGATIVE (Negative); Resp Syncy Virus RNA Qual PCR NEGATIVE (Negative); SARS COV2 PCR INHOUSE NEGATIVE (Negative)
--- NOTE | 2022-09-11 13:01 | PC.NURSE ---
Negative workup, awaiting PA reeval and probable DC home.
--- NOTE | 2022-09-11 13:36 | PC.NURSE ---
PA to bedside for reeval. Cleared felipe peck home.
== END 2022-09-11 13:39 | disposition home or self-care (01) ==
PROVIDERS: Physician Assistant Medical; Emergency Provider Student in an Organized Health Care Education/Training Program
DX: J40 Bronchitis, not specified as acute or chronic (principal); Z20.822 Contact with and (suspected) exposure to COVID-19
CPT/HCPCS: 0241U; 71046; 87651; 99283; 99284

== ENCOUNTER 2023-01-04 13:24 | Emergency (ER) | payer MEDICAID, SELFPAY ==
[2023-01-04 14:17] VITALS: BP 110/77; PULSE 62; RESP 18; TEMP 36.8; O2SAT 99; BMI 30.4
--- NOTE | 2023-01-04 14:43 | ED.GENADULT ---
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 He reports he was at work, had a nosebleed from the left nostril for less than one minute. He reports he walked outside, and the nosebleed started when he walked back inside. There was no trauma He is not on any anticoagulation No other bleeding from any where wles. He has been in the waiting room for more than 4 hours without any recurrence of bleeding <Rosendo Clifford - Last Filed: 01/04/23 18:52> Related Data Home medications: Previous Rx's Medication Instructions Recorded cephalexin 500 mg capsule 500 mg PO TID #21 caps 11/09/20 sulfamethoxazole 800 1 tab PO BID #14 tabs 11/09/20 mg-trimethoprim 160 mg tablet (Bactrim DS) cephalexin 500 mg capsule 500 mg PO QID 7 days #28 caps 05/05/21 doxycycline hyclate 100 mg capsule 100 mg PO BID 7 days #14 caps 05/05/21 doxycycline hyclate 100 mg tablet 100 mg PO BID 7 days #14 tabs 03/20/22 mupirocin 2 % topical ointment 1 appl topical BID 7 days #15 grams 03/20/22 valacyclovir 1 gram tablet 1,000 mg PO BID 7 days #14 tabs 03/20/22 (Valtrex) azithromycin 250 mg tablet See Rx Instructions PO .COMPLEX #6 09/11/22 (Zithromax Z-Elio) tabs <CANDY Guaman Last Filed: 01/04/23 19:58> Allergies/adverse reactions: Allergies Allergy/AdvReac Type Severity Reaction Status Date / Time No Known Allergies Allergy Verified 11/09/20 12:48 <CANDY Guaman - Last Filed: 01/04/23 19:58> Review of Systems Constitutional: Constitutional: Reports as per HPI, Denies chills and Denies fever(s) <Rosendo Clifford - Last Filed: 01/04/23 18:52> ENT: Reports epistaxis <Rosendo Clifford - Last Filed: 01/04/23 18:52> Cardiovascular: Cardiovascular: Denies chest pain <Rosendo Clifford - Last Filed: 01/04/23 18:52> Neurologic: Denies focal weakness <Rosendo Clifford - Last Filed: 01/04/23 18:52> PMFSH Past Medical History Medical History: Medical History COVID-19 <CANDY Guaman - Last Filed: 01/04/23 19:58> Surgical History: Surgical History Hx of appendectomy <CANDY Guaman - Last Filed: 01/04/23 19:58> Family History Family History: Family History Father Diabetes High blood pressure Mother Arthritis <CANDY Guaman - Last Filed: 01/04/23 19:58> Social History Social History: Social History (Updated 03/20/22 @ 16:24 by Sarah Wesley DO) Alcohol intake: never Patient Tobacco Use Status: Never used Tobacco Advance Directives: No Advance Directives Information Provided: No <CANDY Guaman - Last Filed: 01/04/23 19:58> Physical Exam ED Vital Signs: Vital Signs - 24 hr 01/04/23 14:17 Temperature 98.3 F Pulse Rate 62 Respiratory Rate 18 Blood Pressure 110/77 Pulse Oximetry 99 Oxygen Delivery Method Room Air BMI result Body Mass Index 30.4 <CANDY Guaman - Last Filed: 01/04/23 19:58> Vital Signs - 24 hr 01/04/23 14:17 Temperature 98.3 F Pulse Rate 62 Respiratory Rate 18 Blood Pressure 110/77 Pulse Oximetry 99 Oxygen Delivery Method Room Air BMI result Body Mass Index 30.4 < Last Filed: 01/04/23 18:52> Const General: healthy appearing, comfortable, no acute distress, alert and awake < Last Filed: 01/04/23 18:52> Nutritional Appearance: well nourished < Last Filed: 01/04/23 18:52> Orientation/consciousness: patient oriented x3 < Last Filed: 01/04/23 18:52> HENMT Head: Yes normocephalic and Yes atraumatic < Last Filed: 01/04/23 18:52> General nose exam: Normal nares present, No nasal polyps present, normal septum, no nasal discharge noted, no foreign body in nares, no nasal polyps and Other nasal findings present (No active epistaxis. Trace amount of dried blood in left nostril. No mass) < Last Filed: 01/04/23 18:52> Throat: Yes posterior oropharynx normal < Last Filed: 01/04/23 18:52> Eyes Eyelids: Yes eyelids normal < Last Filed: 01/04/23 18:52> Conjunctivae: conjunctivae normal < Last Filed: 01/04/23 18:52> Sclerae: sclerae normal < Last Filed: 01/04/23 18:52> Corneas: corneas normal < Last Filed: 01/04/23 18:52> Pupils: Equal, round and reactive pupils present < Last Filed: 01/04/23 18:52> EOM: EOMs intact bilaterally < Last Filed: 01/04/23 18:52> Neck Neck: Yes full ROM < Last Filed: 01/04/23 18:52> Resp Effort & Inspection: normal respiratory effort and able to speak in complete sentences <Rosendo Jacquesy - Last Filed: 01/04/23 18:52> Skin General skin exam: no rashes or lesions noted and elasticity normal <Rosendo Jacquesy - Last Filed: 01/04/23 18:52> Neuro General: patient oriented x3 <Rosendo KhouryMoorpark - Last Filed: 01/04/23 18:52> Cranial nerves: Yes Equal, round and reactive pupils present and Yes Bilaterally intact EOM present <Rosendo Georgiey - Last Filed: 01/04/23 18:52> Cognition (Neuro): normal cognition <Rosendo KhouryEsa - Last Filed: 01/04/23 18:52> Extrem Other: Moving all extremities well without any obvious deformities <Rosendo KhouryMoorpark - Last Filed: 01/04/23 18:52> Course Course Course Narrative: RME: 47 yold male presents to the ED for left nares bleeding at work that resolved. patient is not on any blood thinners. patient is stable. patient denies any recent trauma <CANDY Guaman - Last Filed: 01/04/23 19:58> Medical Decision Making Medical Decision Making MDM Narrative: Patient had a very small episode of epistaxis has had no recurrence in the last 4 hours. Patient instructed to try humidifier at night and follow up with his PCP <Rosendo Clifford - Last Filed: 01/04/23 18:52> Differential Diagnosis epistaxis allergies Coagulopathy bleeding disorder <Rosendo Clifford - Last Filed: 01/04/23 18:52> Discharge Plan Discharge Clinical Impression: Epistaxis <CANDY Guaman - Last Filed: 01/04/23 19:58> Patient Disposition: Home, Self-Care <CANDY Guaman Last Filed: 01/04/23 19:58> Instructions: Nosebleed (ED) <CANDY Guaman Last Filed: 01/04/23 19:58> Additional Instructions: Try using a humidifier at night to help prevent any recurrence <CANDY Guaman Last Filed: 01/04/23 19:58> Prescriptions: No Action cephalexin 500 mg capsule 500 mg PO TID Qty: 21 0RF sulfamethoxazole-trimethoprim [Bactrim DS] 800-160 mg tablet 1 tab PO BID Qty: 14 0RF cephalexin 500 mg capsule 500 mg PO QID 7 Days Qty: 28 0RF doxycycline hyclate 100 mg capsule 100 mg PO BID 7 Days Qty: 14 0RF doxycycline hyclate 100 mg tablet 100 mg PO BID 7 Days Qty: 14 0RF mupirocin 2 % ointment 1 appl topical BID 7 Days Qty: 15 0RF valacyclovir [Valtrex] 1 gram tablet 1,000 mg PO BID 7 Days Qty: 14 0RF azithromycin [Zithromax Z-Elio] 250 mg tablet See Rx Instructions .ROUTE .COMPLEX Qty: 6 0RF Rx Instructions: For 250 mg dose pack: take 500 mg today (day 1), then 250 mg for 4 days (days 2-5) <CANDY Guaman - Last Filed: 01/04/23 19:58> Interventions: ED Discharge Assessment Last Done: 01/04/23 18:53 <CANDY Guaman - Last Filed: 01/04/23 19:58> Discharge Date/Time: 01/04/23 18:54 <CANDY Guaman - Last Filed: 01/04/23 19:58>
== END 2023-01-04 18:54 | disposition home or self-care (01) ==
PROVIDERS: Emergency Provider Student in an Organized Health Care Education/Training Program
DX: R04.0 Epistaxis (principal); Z79.899 Other long term (current) drug therapy
CPT/HCPCS: 99282; 99283